=== PATIENT | female | born 1980 | race Caucasian/White ===

== ENCOUNTER 2018-02-03 00:35 | Emergency (ER) | payer OTHER ==
[2018-02-03] MEDS ORDERED: SODIUM CHLORIDE 0.9% 1,000 ML IV ONE (01:53)
[2018-02-03 02:17] LABS: Appearance,Urine Clear (Clear); Bacteria,Urine Rare /hpf; Bilirubin,Urine Negative (Negative); Blood,Urine Negative (Negative); Color,Urine Light Yellow; Glucose,Urine (UA) Negative (Negative); Ketones,Urine Negative (Negative); Leukocyte Esterase,Urine Small (Negative); Nitrite,Urine Negative (Negative); Protein,Urine Negative (Negative); RBC,Urine 1 /hpf (0-5); Specific Gravity,Urine 1.003 (1.001-1.035); Squamous Epithelial Cell,Urine 4 /hpf (0-4); Urobilinogen,Urine <2.0 mg/dL (<2.0); WBC,Urine 4 /hpf (0-5)
[2018-02-03 02:26] LABS: Basophils % (A) 0 %; Eosinophils # (A) 0.1 k/uL (0-0.7); Eosinophils % (A) 2 %; HCT 36.1 % (34.0-46.0); HGB 12.5 gm/dL (11.4-16.0); Lymphocytes # (A) 1.9 k/uL (1.0-4.8); Lymphocytes % (A) 25 %; MCH 32.3 pg (25.0-35.0); MCHC 34.7 g/dL (31.0-37.0); MCV 93.1 fL (80.0-100.0); Mean Platelet Volume 8.4; Monocytes # (A) 0.4 k/uL (0-1.0); Monocytes % (A) 5 %; Neutrophils % (A) 66 %; Platelet Count 233 k/uL (150-450); RBC 3.88 m/uL (3.80-5.40); RDW 13.5 % (11.5-15.5); WBC 7.5 k/uL (3.8-10.6)
[2018-02-03 02:36] LABS: ALT 71 U/L (9-52); AST 45 U/L (14-36); Albumin 2.8 g/dL (3.5-5.0); Alkaline Phosphatase 106 U/L (38-126); Anion Gap 7 mmol/L; Blood Urea Nitrogen 9 mg/dL (7-17); Calcium 11.2 mg/dL (8.4-10.2); Carbon Dioxide 26 mmol/L (22-30); Chloride 106 mmol/L (98-107); Glucose 94 mg/dL (74-99); Potassium 3.4 mmol/L (3.5-5.1); Sodium 139 mmol/L (137-145); Total Bilirubin 0.5 mg/dL (0.2-1.3); Total Protein 5.1 g/dL (6.3-8.2)
[2018-02-03] MEDS ORDERED: diphenhydrAMINE 50 MG/ML 1 ML VIAL IVP STA (03:28)
--- NOTE | 2018-02-03 03:30 | ED ---
General Adult HPI - General Chief complaint: Recheck/Abnormal Lab/Rx Stated complaint: Skin irriation, ankle swelling, 35 wks pgt Time Seen by Provider: 02/03/18 01:52 Source: patient Mode of arrival: ambulatory Limitations: no limitations - History of Present Illness Initial comments: This patient is a 37-year-old woman, who states that she is also approximately 35 weeks by ultrasound, who presents to be evaluated for worsening itching. The patient states that this is now impacting on her sleep. She states she has not slept well going on 2 days now due to the itching. The patient denies fever or chills. She denies jaundice. Patient denies any other associated symptoms, including no change in bowel movements or urination. No nausea or vomiting. No abdominal pain. She does not have a rash. -: days(s) Quality: other (Itching) Improves with: none Worsens with: none Associated Symptoms: denies other symptoms Treatments Prior to Arrival: none - Related Data Home Medications Medication Instructions Recorded Confirmed No Known Home Medications [No 02/03/18 02/03/18 Known Home Medications] Allergies Allergy/AdvReac Type Severity Reaction Status Date / Time No Known Allergies Allergy Verified 02/03/18 00:53 Review of Systems ROS Statement: Those systems with pertinent positive or pertinent negative responses have been documented in the HPI. ROS Other: All systems not noted in ROS Statement are negative. Constitutional: Denies: fever, chills, weakness Respiratory: Denies: cough, dyspnea Cardiovascular: Reports: edema. Denies: chest pain, palpitations, dyspnea on exertion, orthopnea, syncope Gastrointestinal: Denies: abdominal pain, nausea, vomiting, diarrhea Genitourinary: Denies: dysuria, hematuria Musculoskeletal: Denies: back pain Skin: Reports: pruritus. Denies: rash, lesions, change in color Neurological: Denies: headache, numbness, paresthesias Past Medical History Past Medical History: No Reported History History of Any Multi-Drug Resistant Organisms: None Reported Past Surgical History: No Surgical Hx Reported Past Psychological History: No Psychological Hx Reported Smoking Status: Never smoker Past Alcohol Use History: None Reported Past Drug Use History: None Reported General Exam Limitations: no limitations General appearance: alert, in no apparent distress, other (Please note that the triage respiratory rate should read 18. This is typographic error.) Head exam: Present: atraumatic, normocephalic Eye exam: Present: normal appearance. Absent: scleral icterus, conjunctival injection ENT exam: Present: normal oropharynx Neck exam: Present: normal inspection Respiratory exam: Present: normal lung sounds bilaterally, other (Please note that the triage respiratory rate should read 18. This is typographic error.). Absent: respiratory distress, wheezes, rales, rhonchi, stridor Cardiovascular Exam: Present: regular rate, normal rhythm, normal heart sounds GI/Abdominal exam: Present: soft, mass (Palpable fundus well above the umbilicus. There is detectable movement.). Absent: distended, tenderness , guarding, rebound Extremities exam: Present: normal inspection, normal capillary refill. Absent: pedal edema, calf tenderness Back exam: Present: normal inspection. Absent: CVA tenderness (R), CVA tenderness (L) Skin exam: Present: warm, dry, intact, normal color. Absent: rash, cyanosis, diaphoretic, erythema, urticaria, vesicles, petechiae, pallor, mottled Course Vital Signs 02/03/18 02/03/18 00:49 03:46 Temperature 97.8 F 97.3 F L Pulse Rate 68 55 L Respiratory 148 H 18 Rate Blood Pressure 148/87 118/60 O2 Sat by Pulse 96 99 Oximetry Medical Decision Making - Lab Data Result diagrams: 02/03/18 02:15 02/03/18 02:15 Lab Results 02/03/18 02/03/18 02/03/18 Range/Units 02:00 02:15 02:15 WBC 7.5 (3.8-10.6) k/uL RBC 3.88 (3.80-5.40) m/uL Hgb 12.5 (11.4-16.0) gm/dL Hct 36.1 (34.0-46.0) % MCV 93.1 (80.0-100.0) fL MCH 32.3 (25.0-35.0) pg MCHC 34.7 (31.0-37.0) g/dL RDW 13.5 (11.5-15.5) % Plt Count 233 (150-450) k/uL Neutrophils % 66 % Lymphocytes % 25 % Monocytes % 5 % Eosinophils % 2 % Basophils % 0 % Neutrophils # 5.0 (1.3-7.7) k/uL Lymphocytes # 1.9 (1.0-4.8) k/uL Monocytes # 0.4 (0-1.0) k/uL Eosinophils # 0.1 (0-0.7) k/uL Basophils # 0.0 (0-0.2) k/uL Sodium 139 (137-145) mmol/L Potassium 3.4 L (3.5-5.1) mmol/L Chloride 106 (98-107) mmol/L Carbon Dioxide 26 (22-30) mmol/L Anion Gap 7 mmol/L BUN 9 (7-17) mg/dL Creatinine 0.60 (0.52-1.04) mg/dL Est GFR (CKD-EPI)AfAm >90 (>60 ml/min/1.73 sqM) Est GFR (CKD-EPI)NonAf >90 (>60 ml/min/1.73 sqM) Glucose 94 (74-99) mg/dL Calcium 11.2 H (8.4-10.2) mg/dL Total Bilirubin 0.5 (0.2-1.3) mg/dL AST 45 H (14-36) U/L ALT 71 H (9-52) U/L Alkaline Phosphatase 106 (38-126) U/L Total Protein 5.1 L (6.3-8.2) g/dL Albumin 2.8 L (3.5-5.0) g/dL Urine Color Light Yellow Urine Appearance Clear (Clear) Urine pH 7.0 (5.0-8.0) Ur Specific [place] 1.003 (1.001-1.035) Urine Protein Negative (Negative) Urine Glucose (UA) Negative (Negative) Urine Ketones Negative (Negative) Urine Blood Negative (Negative) Urine Nitrite Negative (Negative) Urine Bilirubin Negative (Negative) Urine Urobilinogen <2.0 (<2.0) mg/dL Ur Leukocyte Esterase Small H (Negative) Urine RBC 1 (0-5) /hpf Urine WBC 4 (0-5) /hpf Ur Squamous Epith Cells 4 (0-4) /hpf Urine Bacteria Rare H (None) /hpf Disposition Clinical Impression: pruritus Disposition: HOME SELF-CARE Condition: Good Instructions: Itchy Skin (ED) Additional Instructions: As we discussed, your transaminase levels are slightly elevated today. Please have these rechecked in 3 days. Also, please have the ultrasound of the legs checked to rule out a blood clot this morning. Return if there is any difficulty. Is patient prescribed a controlled substance at d/c from ED?: No Referrals: Jose Rodriguez MD [Primary Care Provider] - 1-2 days Sangeeta Ravi MD [STAFF PHYSICIAN] - 1-2 days
[2018-02-03 03:46] VITALS: BP 118/60; PULSE 55; RESP 18; TEMP 97.3
== END 2018-02-03 03:59 | disposition home or self-care (01) ==
LOC: EC 00:35
DX: O26.893 Other specified pregnancy related conditions, third trimester (principal); L29.9 Pruritus, unspecified; O99.89 Other specified diseases and conditions complicating pregnancy, childbirth and the puerperium; M25.473 Effusion, unspecified ankle; Z3A.35 35 weeks gestation of pregnancy
CPT/HCPCS: 36415; 80053; 85025; 81001; 99283; 96374; 96361; J1200

== ENCOUNTER 2018-02-16 06:00 | Inpatient (IN) | payer OTHER ==
[2018-02-16] MEDS ORDERED: LIDOCAINE 1% (PF) 10 MG/ML (30 ML SDV) SQ PRN (06:39)
[2018-02-16] MEDS ORDERED: METHYLERGONOVINE 0.2 MG/ML 1 ML AMP IM PRN (06:39)
[2018-02-16] MEDS ORDERED: PENICILLIN G POTASSIUM 5,000,000 UNIT in DEXTROSE 5% IN WATER 100 ML IVPB STA ×2 (06:39)
[2018-02-16] MEDS ORDERED: TERBUTALINE 1 MG/ML VIAL SQ PRN (06:39)
[2018-02-16] MEDS ORDERED: OXYTOCIN 10 UNIT/ML 1 ML VIAL IM PRN (06:39)
[2018-02-16] MEDS ORDERED: CARBOPROST TROMETHAMINE 250 MCG/ML 1 ML AMP IM PRN (06:39)
[2018-02-16 06:48] LABS: Basophils % (A) 0 %; Eosinophils # (A) 0.1 k/uL (0-0.7); Eosinophils % (A) 2 %; HGB 13.1 gm/dL (11.4-16.0); Lymphocytes # (A) 1.9 k/uL (1.0-4.8); Lymphocytes % (A) 25 %; MCH 31.9 pg (25.0-35.0); MCHC 34.3 g/dL (31.0-37.0); MCV 92.9 fL (80.0-100.0); Mean Platelet Volume 7.9; Monocytes # (A) 0.4 k/uL (0-1.0); Monocytes % (A) 5 %; Neutrophils % (A) 66 %; Platelet Count 279 k/uL (150-450); RDW 13.6 % (11.5-15.5); WBC 7.5 k/uL (3.8-10.6)
[2018-02-16 06:52] VITALS: BMI 32.5
[2018-02-16] MEDS: OXYTOCIN 20 UNITS/1000 ML NS 1,000 ML IV SCH (06:53)
[2018-02-16] MEDS: LACTATED RINGERS 1,000 ML IV SCH ×4 (06:53→23:48)
--- NOTE | 2018-02-16 08:09 | P.HPOB ---
History of Present Illness H&P Date: 02/16/18 This is a 37-year-old white female 6 para 2031 EDC 03/07/2018 at 37-2/7 weeks' gestation. Patient presents with a history of cholestasis of . She has complained of intense itching, fasting bile acids were checked and noted to be very elevated. Recommendation is for delivery after 37 weeks. Cervix is reasonably favorable. She denies headache, visual changes or right upper quadrant pain. Fetus is been active throughout the . Past medical history is significant for meningitis at . Past surgical history LEEP procedure 2007. Current medications Questran twice daily, vitamin daily. ALLERGIES none known. Family history significant for hepatitis C, myocardial infarction, and breast cancer. Social history patient is single, she has never been a smoker, she denies alcohol or drug use. history is significant for positive group B strep cultures, blood type A+, rubella status immune. Hepatitis B surface antigen, gonorrhea and chlamydia cultures, urine culture, HIV testing all negative. One-hour Glucola 97. On exam this is a pleasant white female, she is 5 foot 5 inches, 196 pounds, blood pressure 137/76 on admission, patient is afebrile. The general physical exam is within normal limits. The extremities reveal no edema. Cervix is 2-3 cm dilated, 60% effaced, -2 to -3 station, vertex presentation. It is soft and anterior. Artificial amniorrhexis reveals clear fluid. She is having uterine contractions approximately every 3 minutes apart of mild intensity. heart rate is consistent with reactive NST. Impression: Advanced maternal age, cholestasis of , 37-2/7 weeks intrauterine , group B strep cultures positive. Plan: Penicillin G prophylaxis as per hospital protocol. Oxytocin augmentation. Close maternal and surveillance. Anticipate normal spontaneous vaginal delivery. Review of Systems Constitutional: Reports as per HPI Past Medical History Past Medical History: No Reported History History of Any Multi-Drug Resistant Organisms: None Reported Past Surgical History: No Surgical Hx Reported Past Anesthesia/Blood Transfusion Reactions: No Reported Reaction Past Psychological History: No Psychological Hx Reported Smoking Status: Never smoker Past Alcohol Use History: None Reported Past Drug Use History: None Reported - Past Family History Mother Family Medical History: AFIB Medications and Allergies Home Medications Medication Instructions Recorded Confirmed Type Calcium Carbonate [Tums] 1 tab PO DAILY 02/16/18 02/16/18 History Pnv,Calcium 72/Iron/Folic Acid 1 tab PO DAILY 02/16/18 02/16/18 History [ Plus Tablet] Allergies Allergy/AdvReac Type Severity Reaction Status Date / Time No Known Allergies Allergy Verified 02/16/18 06:38 Exam - Vital Signs Vital signs: Vital Signs Temp Pulse Resp BP Pulse Ox 02/16/18 06:44 97.2 F L 60 18 137/76 97 Intake and Output 02/15/18 02/16/18 02/16/18 22:59 06:59 14:59 Other: Weight 88.904 kg See dictation under HPI. Results Result Diagrams: 02/16/18 06:30 Assessment and Plan Assessment: 37-2/7 weeks intrauterine , positive group B strep cultures, advanced maternal age, cholestasis of . Time with Patient: Less than 30
[2018-02-16] MEDS: PENICILLIN G POTASSIUM 2,500,000 UNIT in DEXTROSE 5% IN WATER 100 ML IVPB SCH ×8 (11:01→23:40)
[2018-02-16] MEDS ORDERED: BUPIVACAINE (PF) 0.25% 30 ML VIAL ONE (11:46)
[2018-02-16] MEDS ORDERED: SODIUM CHLORIDE 0.9% 100 ML BAG ONE (11:46)
[2018-02-16] MEDS ORDERED: fentaNYL (PF) 50 MCG/ML 5 ML AMP ONE (11:46)
[2018-02-16] MEDS ORDERED: ROPIVACAINE 100 MG, fentaNYL (PF) 200 MCG in SODIUM CHLORIDE 0.9% 76 ML EPIDURAL ONE (12:07)
[2018-02-16] MEDS ORDERED: ceFAZolin IN SWFI 2 GM/20 ML SYRINGE IVP ONE (19:22)
[2018-02-16] MEDS ORDERED: CITRIC ACID-SODIUM CITRATE 15 ML CUP PO ONE (19:22)
[2018-02-16] MEDS ORDERED: ceFAZolin 1,000 MG VIAL ONE (19:44)
[2018-02-16] MEDS ORDERED: HYDROmorphone (PF) 1 MG/ML ONE (19:44)
[2018-02-16] MEDS ORDERED: OXYTOCIN 10 UNIT/ML 1 ML VIAL ONE (19:44)
[2018-02-16] MEDS ORDERED: MIDAZOLAM 2 MG/2 ML VIAL ONE (19:44)
[2018-02-16] MEDS ORDERED: KETOROLAC 30 MG/ML 1 ML VIAL ONE (19:44)
[2018-02-16] MEDS ORDERED: MORPHINE SULFATE (PF) 0.3 MG/0.3 ML SYR ONE (19:44)
[2018-02-16] MEDS ORDERED: ONDANSETRON 4 MG/2 ML VIAL ONE (19:44)
[2018-02-16] MEDS ORDERED: NALOXONE 0.4 MG/ML 1 ML VIAL IV PRN (20:45)
[2018-02-16] MEDS ORDERED: METOCLOPRAMIDE 5 MG/ML 2 ML VIAL IVP PRN (20:45)
[2018-02-16] MEDS ORDERED: diphenhydrAMINE 50 MG/ML 1 ML VIAL IVP PRN ×2 (20:45)
[2018-02-16] MEDS ORDERED: diphenhydrAMINE 25 MG CAP PO PRN (20:45)
[2018-02-16] MEDS ORDERED: ZOLPIDEM 5 MG TAB PO PRN (20:45)
[2018-02-16] MEDS ORDERED: HYDROcodone/APAP 5-325MG 1 EACH TAB PO PRN (20:45)
[2018-02-16] MEDS ORDERED: ONDANSETRON 4 MG/2 ML VIAL IVP PRN (20:45)
[2018-02-16] MEDS ORDERED: diphenhydrAMINE 50 MG CAP PO PRN (20:45)
[2018-02-16] MEDS ORDERED: ACETAMINOPHEN TAB 325 MG TAB PO PRN (20:45)
--- NOTE | 2018-02-16 20:45 | P.OP ---
Date of Procedure: 02/16/18 Preoperative Diagnosis: Cholestasis of , 37-2/7 weeks' gestation, advanced maternal age, positive group B strep cultures, undesired fertility, arrest of dilatation and descent Postoperative Diagnosis: Same, left occiput transverse, nuchal cord 1 Procedure(s) Performed: Primary low transverse section and tubal ligation Anesthesia: spinal Surgeon: Sangeeta Ravi Test Design Engineer #1: Vita Bautista Estimated Blood Loss (ml): 600 IV fluids (ml): 800 Urine output (ml): 400 Pathology: other (Placenta) Condition: stable Disposition: PACU Indications for Procedure: Arrest of dilatation and descent at 5-6 cm, -2. Operative Findings: Left occiput transverse , nuchal cord 1 Description of Procedure: Patient is brought to the operating suite where a spinal with Duramorph is placed without difficulty. She is placed in the dorsal lithotomy position. The abdomen is prepped and draped in usual sterile fashion, Gale catheter placed, vaginal prep done. Antibiotics are given. The appropriate timeout is performed to assure proper patient and procedural identification. The abdomen is checked, analgesia is appropriate, and a low-transverse incision is made, carried down through the subcutaneous tissue to the fascia. Fascia is isolated , scored and extended bilaterally with curved Harris scissors. Peritoneum is next identified and incised, there is no bowel or bladder involvement. Bladder blade is placed over the bladder and at all times the bladder was kept well from the operative field to avoid bladder and/or ureteral injury. A low transverse uterine incision is made in this is carried down to the endometrial cavity. The incision is extended with blunt dissection. The 's head is delivered in the left occiput transverse position. There was a nuchal cord 1 that is reduced. The oropharynx, nasopharynx, and external nares are thoroughly suctioned. The patient is officially delivered of a liveborn female infant with scores of 9 and 9 at one and 5 minutes respectively. The umbilical cord is doubly clamped and ligated. Placenta is delivered manually, it is inspected and noted to be intact with trivascular cord. The uterus is then externalized and swept clean to avoid any retained products of conception. The edges of the incision are grasped with Young clamps. The uterus is closed in a two-step fashion, first layer running locking , second layer imbricated. Decision for tubal ligation is once again confirmed. Filshie clips are placed in the isthmic portion of both tubes, with care to traverse the entire diameter of the tubes into the mesal salpinx bilaterally. Fimbriated ends are identified for proper placement. Bilateral ovaries appear normal. Uterus is gently placed back into the abdominal cavity after the abdomen is suctioned with a suction on guard. Incision is noted to be clean and dry. Gale is draining clear urine. Peritoneum is allowed to close by secondary intention. Fascia is closed in a running stitch, with over ligation in the midline. Subcutaneous tissue is irrigated, noted to be clean and dry. It is reapproximated with 3-0 Vicryl in a running fashion. 4-0 undyed Vicryl is finally applied in a subcuticular manner for final skin closure. Steri-Strips and Mastisol are applied to the wound. Uterus is massaged for a small amount of blood and clots. Patient is brought back to the recovery area in very good condition with stable vital signs including a pulse of 60, blood pressure 144/73. All sponge needle and enhancement counts are correct at the end of this procedure. infant is doing well.
[2018-02-16 23:11] LABS: Appearance,Urine Clear (Clear); Bilirubin,Urine Negative (Negative); Blood,Urine Negative (Negative); Color,Urine Yellow; Glucose,Urine (UA) Negative (Negative); Ketones,Urine 3+ (Negative); Leukocyte Esterase,Urine Trace (Negative); Mucus,Urine Rare /hpf; Nitrite,Urine Negative (Negative); PH, Urine 6.5 (5.0-8.0); Protein,Urine Trace (Negative); RBC,Urine 3 /hpf (0-5); Specific Gravity,Urine 1.016 (1.001-1.035); Squamous Epithelial Cell,Urine <1 /hpf (0-4); Urobilinogen,Urine <2.0 mg/dL (<2.0); WBC,Urine 4 /hpf (0-5)
[2018-02-16 23:51] LABS: Basophils % (A) 0 %; Eosinophils % (A) 0 %; HCT 34.4 % (34.0-46.0); HGB 11.8 gm/dL (11.4-16.0); Lymphocytes % (A) 6 %; MCH 32.1 pg (25.0-35.0); MCHC 34.4 g/dL (31.0-37.0); MCV 93.2 fL (80.0-100.0); Monocytes # (A) 0.6 k/uL (0-1.0); Monocytes % (A) 4 %; Neutrophils # (A) 13.6 k/uL (1.3-7.7); Neutrophils % (A) 89 %; Platelet Count 263 k/uL (150-450); RBC 3.69 m/uL (3.80-5.40); RDW 13.4 % (11.5-15.5); WBC 15.3 k/uL (3.8-10.6)
[2018-02-17 00:09] LABS: ALT 66 U/L (9-52); AST 51 U/L (14-36); Blood Urea Nitrogen 7 mg/dL (7-17); LDH 643 U/L (313-618); Uric Acid 5.5 mg/dL (3.7-7.4)
[2018-02-17] MEDS: LACTATED RINGERS 1,000 ML IV SCH ×2 (04:48→17:19)
[2018-02-17 06:40] LABS: Basophils % (A) 0 %; Eosinophils # (A) 0.1 k/uL (0-0.7); Eosinophils % (A) 0 %; HCT 31.1 % (34.0-46.0); HGB 10.6 gm/dL (11.4-16.0); Lymphocytes # (A) 1.2 k/uL (1.0-4.8); Lymphocytes % (A) 9 %; MCH 32.4 pg (25.0-35.0); MCHC 34.2 g/dL (31.0-37.0); MCV 94.6 fL (80.0-100.0); Mean Platelet Volume 7.8; Monocytes # (A) 0.4 k/uL (0-1.0); Monocytes % (A) 3 %; Neutrophils # (A) 11.8 k/uL (1.3-7.7); Neutrophils % (A) 87 %; Platelet Count 295 k/uL (150-450); RBC 3.28 m/uL (3.80-5.40); RDW 14.2 % (11.5-15.5); WBC 13.7 k/uL (3.8-10.6)
--- NOTE | 2018-02-17 07:31 | P.PN ---
Subjective Progress Note Date: 02/17/18 Principal diagnosis: Postoperative day #1 Slept well, minimal pain. Normal to moderate lochia rubra. No complaints Objective - Vital Signs Vital signs: Vital Signs Temp 97.5 F L 02/17/18 03:56 Pulse 67 02/17/18 03:56 Resp 15 02/17/18 03:56 BP 129/73 02/17/18 03:56 Pulse Ox 95 02/17/18 03:56 Intake & Output 02/16/18 02/17/18 02/17/18 18:59 06:59 18:59 Intake Total 1400 Output Total 1400 Balance 0 Intake: IV 800 Intake, IV Titration 600 Amount Lactated Ringers 1,000 ml 200 @ 125 mls/hr IV .Q8H PREMA Rx#:[id number] Oxytocin 20 Units/1000 ml 400 Ns 1,000 ml @ 1 MILLIUNIT/MIN 3 mls/hr IV .Q24H PREMA Rx#:[id number] Output: Urine 800 Uretheral (Gale) 250 Estimated Blood Loss 600 Other: Voiding Method Indwelling Catheter # Voids 0 0 - Constitutional General appearance: Present: average body habitus, cooperative - EENT Eyes: Present: PERRLA ENT: Present: hearing grossly normal - Neck Neck: Present: normal ROM - Respiratory Respiratory: bilateral: CTA - Cardiovascular Rhythm: regular - Gastrointestinal General gastrointestinal: Present: normal bowel sounds - Genitourinary Genitourinary Comment(s): Incision clean and dry, intact, Steri-Strips applied. Fundus firm, midline, mobile, 18 week size - Integumentary Integumentary: Present: normal - Neurologic Neurologic: Present: CNII-XII intact - Musculoskeletal Musculoskeletal: Present: gait normal, strength equal bilaterally - Psychiatric Psychiatric: Present: A&O x's 3, appropriate affect, intact judgment & insight - Labs CBC & Chem 7: 02/17/18 05:44 02/16/18 23:38 Labs: Abnormal Lab Results - Last 24 Hours (Table) 02/16/18 02/16/18 02/16/18 Range/Units 23:00 23:38 23:38 WBC 15.3 H (3.8-10.6) k/uL RBC 3.69 L (3.80-5.40) m/uL Hgb (11.4-16.0) gm/dL Hct (34.0-46.0) % Neutrophils # 13.6 H (1.3-7.7) k/uL AST 51 H (14-36) U/L ALT 66 H (9-52) U/L Lactate Dehydrogenase 643 H (313-618) U/L Urine Protein Trace H (Negative) Urine Ketones 3+ H (Negative) Ur Leukocyte Esterase Trace H (Negative) Urine Mucus Rare H (None) /hpf 02/17/18 Range/Units 05:44 WBC 13.7 H (3.8-10.6) k/uL RBC 3.28 L (3.80-5.40) m/uL Hgb 10.6 L (11.4-16.0) gm/dL Hct 31.1 L (34.0-46.0) % Neutrophils # 11.8 H (1.3-7.7) k/uL AST (14-36) U/L ALT (9-52) U/L Lactate Dehydrogenase (313-618) U/L Urine Protein (Negative) Urine Ketones (Negative) Ur Leukocyte Esterase (Negative) Urine Mucus (None) /hpf Assessment and Plan Assessment: Doing well postoperative day #1 Plan: May DC IV. May shower. Regular diet. Continue postoperative care. Possible discharge home tomorrow. Time with Patient: Less than 30
[2018-02-17] MEDS: SENNOSIDES-DOCUSATE SODIUM 1 EACH TAB PO SCH ×2 (07:41→20:18)
[2018-02-17] MEDS: KETOROLAC 30 MG/ML 1 ML VIAL IVP PRN ×2 (07:41→13:47)
--- NOTE | 2018-02-17 07:44 | P.PN ---
Progress Note - Text Date:02/17 Time:736am Patient is status post . Patient seen this morning with VAS score of 2.no c/o of pruritus, no c/o nausea/vomiting, comfortable and doing well.
[2018-02-17] MEDS: OXYTOCIN 20 UNITS/1000 ML NS 1,000 ML IV SCH (08:42)
[2018-02-17] MEDS: IBUPROFEN 600 MG TAB PO PRN (20:17)
[2018-02-18 00:15] VITALS: BP 122/71; PULSE 83; RESP 18; TEMP 98.2
[2018-02-18] MEDS: IBUPROFEN 600 MG TAB PO PRN ×2 (02:06→13:35)
--- NOTE | 2018-02-18 08:18 | DS ---
DISCHARGE SUMMARY DATE OF ADMISSION: 02/16/2018 ADMITTING DIAGNOSES: 1. Cholestasis of . 2. A 37-2/7 weeks gestation. 3. Positive group B strep cultures. 4. Advanced maternal age. 5. Favorable multiparous cervix. DATE OF DISCHARGE: 02/18/2018. DISCHARGE DIAGNOSES: 1. Status post primary low transverse section for arrest of dilatation and descent. 2. Status post bilateral tubal ligation for undesired fertility. 3. Status post antibiotic prophylaxis for positive group B strep cultures. This is a 37-year-old white female, 6, para 2-0-3-2, EDC 03/07/2018, at 37-2/7 weeks gestation. The patient was noted to have elevated bile acids in the office with intense pruritus of the palms and soles, consistent with cholestasis of . Consistent with current guidelines, induction of labor was performed at 37-2/7 weeks gestation. Through the course of labor, she received 3 doses of penicillin for positive group B strep. Artificial amniorrhexis revealed clear fluid. Epidural was placed per her request. She had arrest of dilatation and descent at 5 to 6 cm, along with occasional late decelerations. Decision was made for primary low transverse section with tubal ligation per her request. Please see my dictated operative note for details. She gave to a live born female with scores of 9 and 9 at 1 and 5 minutes respectively. There was a nuchal cord x1. weighed 3080 grams or 6 pounds 13 ounces. She did well intraoperatively with an estimated blood loss of 600 mL. The infant was noted to be in the left occiput transverse position with a nuchal cord x1. Bilateral tubal ligation was performed with Filshie clips. Please see my dictated operative note for details. This morning, the patient is doing well. Vital signs are stable and she is afebrile. Several blood pressures were noted to be mildly elevated. Blood pressures are normal this morning, 113/70s. Incision is clean and dry, intact with Steri-Strips applied. The patient has complained of intermittent shoulder pain, this is improved this morning. Her pain is well alleviated with Motrin products. The patient is being discharged home this morning in good condition. She will follow up with me in the office in 2 weeks for incision check. I have reminded her no intercourse, tampons, or douching. She will use [id number] ibuprofen products, 200 mg pills, 3 every 6 hours as needed. I have asked her to call me with any headache, visual changes, right upper quadrant pain, with any chest pain or indeed with any concerns or any issues not alleviated by [id number] issues. She is reminded no heavy lifting, no driving for 2 weeks. MMODL / ISAAKN: [id number] /
[2018-02-18] MEDS: SENNOSIDES-DOCUSATE SODIUM 1 EACH TAB PO SCH (13:36)
== END 2018-02-18 13:45 | disposition home or self-care (01) | DRG 765 ==
LOC: 4FBP 06:09
PROVIDERS: ADMIT Obstetrics & Gynecology; ATTEND Obstetrics & Gynecology
PROC: 0UL70CZ Occlusion of Bilateral Fallopian Tubes with Extraluminal Device, Open Approach (ICD-10-PCS; 2018-02-16)
PROC: 3E033VJ Introduction of Other Hormone into Peripheral Vein, Percutaneous Approach (ICD-10-PCS; 2018-02-16)
PROC: 10D00Z1 Extraction of Products of Conception, Low, Open Approach (ICD-10-PCS; principal; 2018-02-16 19:56)
DX: O26.62 Liver and biliary tract disorders in childbirth (principal); K83.1 Obstruction of bile duct; Z37.0 Single live birth; O69.81X0 Labor and delivery complicated by cord around neck, without compression, not applicable or unspecified; O76 Abnormality in fetal heart rate and rhythm complicating labor and delivery; O62.8 Other abnormalities of forces of labor; O62.0 Primary inadequate contractions; O99.824 Streptococcus B carrier state complicating childbirth; O99.89 Other specified diseases and conditions complicating pregnancy, childbirth and the puerperium; M25.519 Pain in unspecified shoulder; Z3A.37 37 weeks gestation of pregnancy; Z80.3 Family history of malignant neoplasm of breast; Z82.49 Family history of ischemic heart disease and other diseases of the circulatory system; Z86.61 Personal history of infections of the central nervous system
CPT/HCPCS: 81001; 82565; 83615; 84450; 84460; 84520; 84550; 85025; 86850; 86900; 86901; 88307; 93005